=== PATIENT | male | born 1990 | race Caucasian/White ===

== ENCOUNTER → 2020-11-12 | Outpatient (CLI) | payer OTHER | LOC: KOH-I 08:00 | DX: M22.42 Chondromalacia patellae, left knee (principal); M23.8X2 Other internal derangements of left knee | CPT/HCPCS: 73721 ==

== ENCOUNTER → 2022-02-02 | Day surgery (SDC) | payer OTHER ==
[~2022-02-02] MED LIST: OMEPRAZOLE MAGN20 M1 PO
== END | disposition home or self-care (01) ==
LOC: OR 07:12
DX: K62.5 Hemorrhage of anus and rectum (principal); K31.9 Disease of stomach and duodenum, unspecified; K21.00 Gastro-esophageal reflux disease with esophagitis, without bleeding; K29.80 Duodenitis without bleeding; K64.1 Second degree hemorrhoids; K64.4 Residual hemorrhoidal skin tags; K22.10 Ulcer of esophagus without bleeding; Z72.0 Tobacco use
CPT/HCPCS: J2250; J2704; J3010